=== PATIENT | female | born 2000 | race American Indian/Alaskan Native ===

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

== ENCOUNTER 2018-02-19 02:25 | Inpatient (IN) | payer MEDICAID ==
[2018-02-19] MEDS ORDERED: COLACE PO PRN (07:09)
[2018-02-19] MEDS ORDERED: STADOL IV PRN (07:09)
[2018-02-19] MEDS ORDERED: ZOFRAN IV PRN ×2 (07:09→18:16)
[2018-02-19] MEDS ORDERED: TYLENOL PO PRN ×2 (07:09→18:16)
[2018-02-19 08:12] LABS: Basophils # (Auto) 0.1 K/mm3 (0.0-0.1); Basophils % (Auto) 0.9 % (0.0-1.8); Eosinophils # (Auto) 0.1 K/mm3 (0.0-0.4); Eosinophils % (Auto) 1.5 % (0.0-4.3); Hematocrit 35.5 % (30.3-42.9); Hemoglobin 11.7 gm/dl (10.1-14.3); Lymphocytes # (Auto) 1.4 K/mm3 (1.2-5.4); Lymphocytes % (Auto) 21.6 % (13.4-35.0); Mean Corpuscular HGB Conc 33 % (30-34); Mean Corpuscular Hemoglobin 29 pg (28-32); Mean Corpuscular Volume 87 fl (79-97); Monocytes # (Auto) 0.4 K/mm3 (0.0-0.8); Red Cell Distribution Width 17.9 % (13.2-15.2)
[2018-02-19 08:20] LABS: Platelet Count 106 K/mm3 (140-440)
[2018-02-19] MEDS: LACTATED RINGERS 1,000 ML IV SCH ×3 (08:31→12:43)
[2018-02-19 09:20] LABS: Alanine Aminotransferase 11 units/L (7-56); Albumin 3.5 g/dL (3.9-5); BUN/Creatinine Ratio 16; Blood Urea Nitrogen 11 mg/dL (7-17); Calcium 8.3 mg/dL (8.4-10.2); Hemolysis Index 46
[2018-02-19] MEDS ORDERED: BRETHINE IVP PRN (12:53)
[2018-02-19] MEDS ORDERED: BRETHINE SUB-Q PRN (12:53)
[2018-02-19] MEDS ORDERED: ePHEDrine SULFATE IV PRN (12:53)
[2018-02-19] MEDS ORDERED: MINERAL OIL PO PRN (12:53)
[2018-02-19] MEDS ORDERED: SUBLIMAZE IV PRN (12:53)
[2018-02-19] MEDS ORDERED: PHENERGAN PO PRN ×2 (12:53→18:16)
[2018-02-19] MEDS ORDERED: NARCAN 0.4 MG/1 ML IV PRN (12:53)
[2018-02-19] MEDS ORDERED: POLYCILLIN/NS 2 GM/100 ML 2 GM/100 ML BAG IV ONE (12:53)
[2018-02-19] MEDS ORDERED: XYLOCAINE 2% INFILTRATI ONE ×2 (12:53→17:50)
[2018-02-19] MEDS ORDERED: PITOCin/NS 30 UNIT/500ML 30 UNITS/500 ML BAG IV SCH ×2 (13:00)
[2018-02-19] MEDS ORDERED: LACTATED RINGERS 1,000 ML IV SCH (13:00)
[2018-02-19] MEDS ORDERED: PITOCin/NS 20 UNIT/1000ML DRIP 20 UNITS/1,000 ML BAG IV SCH ×2 (13:00→19:00)
--- NOTE | 2018-02-19 13:09 | History and Physical Report ---
History of Present Illness Date of examination: 02/19/18 Date of admission: 02/19/18 07:32 Chief complaint: contractions History of present illness: Pt is a 17yo BF EDC 03/03/18; EGA 38 2/7 weeks presents to L&D complaining of RUC's q 3-5 mins without much cervical change, but had a non-reassuring tracing requiring admission. She received late care at [facility] since 28 weeks and was hospitalized for labor at 26 weeks and started on Procardia. records are available and GBS is Positive. Past History Past Medical History: no pertinent history Past Surgical History: no surgical history Family/Genetic History: none Social history: no significant social history, single - Obstetrical History Expected Date of Delivery: 03/03/18 Actual Gestation: 38 Week(s) 2 Day(s) : 1 Medications and Allergies Allergies Allergy/AdvReac Type Severity Reaction Status Date / Time No Known Allergies Allergy Verified 11/24/17 12:17 Home Medications Medication Instructions Recorded Confirmed Last Taken Type Ampicillin [Polycillin] 500 mg PO BID #10 capsule 11/27/17 02/19/18 2 Months Ago Rx ~12/20/17 NIFEdipine [Procardia] 10 mg PO Q8HR #90 capsule 11/27/17 02/19/18 1 Month Ago Rx ~01/20/18 Vit-Fe Fumar-FA [ 1 each PO QDAY #30 tablet 11/27/17 02/19/18 02/18/18 11:30 Rx Vitamin] Ferrous Gluconate [Iron 256 MG tab] 1 tab PO QDAY 02/19/18 02/19/18 02/18/18 11: 30 History Valacyclovir HCl [Valtrex] 1,000 mg PO QDAY 02/19/18 02/19/18 02/18/18 11:30 History Active Meds: Active Medications Acetaminophen (Tylenol) 650 mg PO Q4H PRN PRN Reason: Pain MILD(1-3)/Fever >100.5/ENNIS Butorphanol Tartrate (Stadol) 2 mg IV Q2H PRN PRN Reason: Labor Pain Last Admin: 02/19/18 11:21 Dose: 2 mg Docusate Sodium (Colace) 100 mg PO Q12H PRN PRN Reason: Constipation Ephedrine Sulfate (Ephedrine Sulfate) 10 mg IV Q2M PRN PRN Reason: Hypotension Fentanyl (Sublimaze) 100 mcg IV Q2H PRN PRN Reason: Labor Pain Lactated Ringer's (Lactated Ringers) 1,000 mls @ 125 mls/hr IV DIRECT OTONIEL Last Admin: 02/19/18 12:43 Dose: 125 mls/hr Ampicillin Sodium (Ampicillin/Ns 1 Gm/50 Ml) 1 gm in 50 mls @ 100 mls/hr IV Q4HR OTONIEL; Protocol Ampicillin Sodium (Polycillin/Ns 2 Gm/100 Ml) 2 gm in 100 mls @ 100 mls/hr IV ONCE ONE; Protocol Stop: 02/19/18 13:52 Lactated Ringer's (Lactated Ringers) 1,000 mls @ 125 mls/hr IV DIRECT OTONIEL Oxytocin/Sodium Chloride (Pitocin/Ns 20 Unit/1000ml Drip) 20 units in 1,000 mls @ 125 mls/hr IV DIRECT OTONIEL Oxytocin/Sodium Chloride (Pitocin/Ns 30 Unit/500ml) 30 units in 500 mls @ 1 mls /hr IV TITR OTONIEL; Protocol Oxytocin/Sodium Chloride (Pitocin/Ns 30 Unit/500ml) 30 units in 500 mls @ 4 mls /hr IV TITR OTONIEL; Protocol Lidocaine (Xylocaine 2%) 20 ml INFILTRATI ONCE ONE Stop: 02/19/18 12:54 Mineral Oil (Mineral Oil) 30 ml PO QHS PRN PRN Reason: Constipation Multivitamins/Iron/Calcium ( Vitamin) 1 each PO QDAY OTONIEL Naloxone HCl (Narcan 0.4 Mg/1 Ml) 0.1 mg IV Q2MIN PRN PRN Reason: Res Rate </= 8 or 02 SAT < 92% Ondansetron HCl (Zofran) 4 mg IV Q6H PRN PRN Reason: Nausea And Vomiting Last Admin: 02/19/18 08:31 Dose: 4 mg Promethazine HCl (Phenergan) 25 mg PO Q6H PRN PRN Reason: Nausea And Vomiting Terbutaline Sulfate (Brethine) 0.25 mg SUB-Q ONCE PRN PRN Reason: Hyperstimulation/Hypertonicity Terbutaline Sulfate (Brethine) 0.25 mg IVP ONCE PRN PRN Reason: Hyperstimulation/Hypertonicity Review of Systems All systems: negative - Vital Signs Vital signs: Vital Signs Pulse BP 63 135/92 02/19/18 03:27 02/19/18 03:27 Temp Pulse Resp BP Pulse Ox 97.5 F L 56 L 18 161/93 100 02/19/18 08:14 02/19/18 13:01 02/19/18 08:14 02/19/18 12:58 02/19/18 13:01 - Physical Exam Breasts: Positive: deferred Cardiovascular: Regular rate Lungs: Positive: Clear to auscultation Abdomen: Positive: normal appearance Genitourinary (Female): Positive: normal external genitalia Vagina: Positive: normal moisture Uterus: Positive: enlarged Extremities: Positive: normal - Obstetrical FHR: category 1 Uterine Contraction Monitor Mode: External Cervical Dilatation: 1 (per nurse) Cervical Effacement Percentage: 50 (per nurse) Uterine Contraction Pattern: Irregular Uterine Tone Measurement Phase: Contraction Uterine Contraction Intensity: Mild Results Result Diagrams: 02/19/18 07:55 02/19/18 09:01 Abnormal lab results 02/19/18 02/19/18 Range/Units 07:55 09:01 RDW 17.9 H (13.2-15.2) % Plt Count 106 L (140-440) K/mm3 Carbon Dioxide 20 L (22-30) mmol/L Calcium 8.3 L (8.4-10.2) mg/dL Alkaline Phosphatase 143 H (35-129) units/L Albumin 3.5 L (3.9-5) g/dL All other labs normal. Assessment and Plan - Patient Problems (1) 38 weeks gestation of Onset Date: 02/19/18 Current Visit: Yes Status: Acute Plan to address problem: A: IUP @ 38 3/7 weeks labor GBS Positive Non-reassuring surveillance P: Admit to L&D for pitocin augmentation of labor IV Ampicillin (2) labor in third trimester with term delivery Onset Date: 02/19/18 Current Visit: Yes Status: Acute Qualifiers: Fetus number: single or unspecified fetus Qualified Code(s): O60.23X0 - Term delivery with labor, third trimester, not applicable or unspecified (3) Non-reassuring heart rate or rhythm affecting management of mother Onset Date: 02/19/18 Current Visit: Yes Status: Acute
[2018-02-19 14:28] LABS: Hemoglobin 11.4 gm/dl (10.1-14.3)
[2018-02-19 14:34] LABS: Hematocrit 33.6 % (30.3-42.9); Mean Corpuscular HGB Conc 34 % (30-34); Mean Corpuscular Hemoglobin 29 pg (28-32); Mean Corpuscular Volume 86 fl (79-97); Red Blood Count 3.91 M/mm3 (3.65-5.03); Red Cell Distribution Width 18.1 % (13.2-15.2)
[2018-02-19 14:35] LABS: Platelet Count 104 K/mm3 (140-440)
[2018-02-19] MEDS ORDERED: AMPICILLIN/NS 1 GM/50 ML 1 GM/50 ML BAG IV SCH (16:58)
--- NOTE | 2018-02-19 18:09 | Procedure Note ---
OB Delivery Note - Delivery Date of Delivery: 02/19/18 Surgeon: SONJA GREEN Estimated blood loss: 200cc - Vaginal Delivery presentation: vertex Delivery position: OA Intrapartum events: PROM->1hr before delivery, meconium, mult.variable deceleratio Delivery induction: none Delivery augmentation: pitocin Delivery monitor: external FHT, external uterine Route of delivery: Delivery placenta: spontaneous Delivery cord: nuchal cord (x1), 3 umbilical vessels Episiotomy: none Delivery laceration: 1st degree, vaginal side wall Delivery repair: vicryl Anesthesia: local Delivery comments: Infant delivered OA and placed on Mom's chest for [id number] bonding and delayed cord clamping, cut by Dad - Infant A at 1 minute: 9 at 5 minutes: 9 Gender: Female ([id number])
[2018-02-19] MEDS ORDERED: LANSINOH TP PRN (18:16)
[2018-02-19] MEDS ORDERED: DULCOLAX PR PRN (18:16)
[2018-02-19] MEDS ORDERED: BENADRYL PO PRN (18:16)
[2018-02-19] MEDS ORDERED: MILK OF MAGNESIA PO PRN (18:16)
[2018-02-19] MEDS ORDERED: TUCKS PAD TP PRN (18:16)
[2018-02-19] MEDS ORDERED: PHENERGAN PR PRN (18:16)
[2018-02-19] MEDS ORDERED: NORCO 5/325 PO PRN (18:23)
[2018-02-19] MEDS: MOTRIN PO SCH (18:53)
[2018-02-19] MEDS ORDERED: SODIUM CHLORIDE FLUSH SYRINGE 10 ML IV NR (19:00)
[2018-02-20] MEDS: MOTRIN PO SCH ×4 (01:08→22:25)
[2018-02-20 05:46] LABS: Hematocrit 32.3 % (30.3-42.9); Hemoglobin 10.8 gm/dl (10.1-14.3)
[2018-02-20] MEDS ORDERED: M-M-R II VACCINE SUB-Q ONE (06:00)
[2018-02-20] MEDS ORDERED: BOOSTRIX IM ONE (06:00)
[2018-02-20] MEDS: PRENATAL VITAMIN PO SCH ×2 (10:27→10:28)
--- NOTE | 2018-02-20 10:48 | Progress Note ---
Assessment and Plan - Patient Problems (1) 38 weeks gestation of Onset Date: 02/19/18 Current Visit: Yes Status: Resolved (2) labor in third trimester with term delivery Onset Date: 02/19/18 Current Visit: Yes Status: Resolved Qualifiers: Fetus number: single or unspecified fetus Qualified Code(s): O60.23X0 - Term delivery with labor, third trimester, not applicable or unspecified (3) Non-reassuring heart rate or rhythm affecting management of mother Onset Date: 02/19/18 Current Visit: Yes Status: Resolved (4) (normal spontaneous vaginal delivery) Onset Date: 02/20/18 Current Visit: Yes Status: Resolved Plan to address problem: A: S/P - PPD #1 Doing well Asymptomatic anemia - stable P: May go home today. Subjective - Subjective Date of service: 02/20/18 Principal diagnosis: s/p - PPD #1 Interval history: Pt is feeling well without complaints. Bleeding improved. Wants to go home today. Patient reports: appetite normal, voiding normally, pain well controlled, flatus , ambulating normally, no dizzy ambulation, no nauseated [place]: doing well, nursing well Objective - Vital Signs Latest vital signs: Vital Signs Temp Pulse Resp BP BP Pulse Ox 02/20/18 08:13 98.8 F 82 18 127/91 100 02/20/18 05:56 98.6 F 69 16 126/80 02/20/18 01:04 98.8 F 93 H 18 115/65 02/19/18 21:15 98.4 F 64 18 118/76 02/19/18 19:09 97.9 F 02/19/18 19:03 64 130/80 02/19/18 18:58 76 120/76 02/19/18 18:28 80 141/82 02/19/18 17:58 73 142/75 02/19/18 17:29 70 137/89 02/19/18 16:58 74 152/87 02/19/18 16:28 60 150/86 02/19/18 15:58 59 L 144/83 02/19/18 15:29 62 136/83 02/19/18 14:58 56 L 152/95 02/19/18 14:28 56 L 135/86 02/19/18 13:01 56 L 100 02/19/18 12:58 60 161/93 02/19/18 12:56 62 100 02/19/18 12:51 55 L 100 02/19/18 12:30 61 119/65 02/19/18 11:58 62 130/82 02/19/18 11:28 55 L 136/69 02/19/18 10:58 54 L 145/89 Intake and Output 02/19/18 02/20/18 02/20/18 22:59 06:59 14:59 Intake Total 480 250 Output Total 951 Balance -471 250 Intake: Oral 250 Intake, Free Water 480 Output: Urine 951 Void 951 Other: Total, Intake Amount 250 Total, Output Amount 400 # Voids Void 1 Estimated Blood Loss 200 - Exam Breasts: Present: deferred Cardiovascular: Present: Regular rate Lungs: Present: Clear to auscultation Abdomen: Present: normal appearance, soft Uterus: Present: normal, firm, fundal height below umbilicus Extremities: Present: normal - Labs Labs: Abnormal lab results 02/19/18 Range/Units 14:03 RDW 18.1 H (13.2-15.2) % Plt Count 104 L (140-440) K/mm3 Laboratory Tests 02/19/18 02/19/18 02/19/18 07:47 07:55 09:01 WBC 6.6 RBC 4.10 Hgb 11.7 Hct 35.5 MCV 87 MCH 29 MCHC 33 RDW 17.9 H Plt Count 106 L Lymph % (Auto) 21.6 [place] % (Auto) 6.0 Eos % (Auto) 1.5 Baso % (Auto) 0.9 Lymph # 1.4 [place] # 0.4 Eos # 0.1 Baso # 0.1 Seg Neutrophils % 70.0 Seg Neutrophils # 4.6 Sodium 139 Potassium 4.4 Chloride 104.8 Carbon Dioxide 20 L Anion Gap 19 BUN 11 Creatinine 0.7 Estimated GFR > 60 BUN/Creatinine Ratio 16 Glucose 85 Calcium 8.3 L Total Bilirubin 0.20 AST 23 ALT 11 Alkaline Phosphatase 143 H Total Protein 6.9 Albumin 3.5 L Albumin/Globulin Ratio 1.0 Blood Type O POSITIVE Antibody Screen Negative 02/19/18 02/20/18 14:03 05:28 WBC 6.4 RBC 3.91 Hgb 11.4 10.8 Hct 33.6 32.3 MCV 86 MCH 29 MCHC 34 RDW 18.1 H Plt Count 104 L Lymph % (Auto) [place] % (Auto) Eos % (Auto) Baso % (Auto) Lymph # [place] # Eos # Baso # Seg Neutrophils % Seg Neutrophils # Sodium Potassium Chloride Carbon Dioxide Anion Gap BUN Creatinine Estimated GFR BUN/Creatinine Ratio Glucose Calcium Total Bilirubin AST ALT Alkaline Phosphatase Total Protein Albumin Albumin/Globulin Ratio Blood Type Antibody Screen
--- NOTE | 2018-02-20 12:23 | Discharge Summary ---
Providers - Providers Date of Admission: 02/19/18 07:32 Date of discharge: 02/20/18 Attending physician: SONJA GREEN Primary care physician: SONJA GREEN Hospitalization Reason for admission: observation, induction of labor, IUP at term, other (non- reassuring tracing) Delivery: Episiotomy: none Laceration: vaginal side wall, 1st degree Other procedures: none complications: none Discharge diagnosis: IUP at term delivered [place] baby: female Hospital course: Unremarkable. Condition at discharge: Good Disposition: DC-01 TO HOME OR SELFCARE - Discharge Diagnoses (1) 38 weeks gestation of Status: Resolved (2) labor in third trimester with term delivery Status: Resolved Qualifiers: Fetus number: single or unspecified fetus Qualified Code(s): O60.23X0 - Term delivery with labor, third trimester, not applicable or unspecified (3) Non-reassuring heart rate or rhythm affecting management of mother Status: Resolved (4) (normal spontaneous vaginal delivery) Status: Resolved Plan - Discharge Medications Prescriptions: Ferrous Gluconate [Iron 256 MG tab] 1 tab PO QDAY #30 tablet Ibuprofen [Motrin 600 MG tab] 600 mg PO Q6H #30 tablet Vit-Fe Fumar-FA [ Vitamin] 1 each PO QDAY #30 tablet - Provider Discharge Summary Activity: routine, no sex for 6 weeks, no heavy lifting 4 weeks, no strenuous exercise Diet: routine Instructions: routine Additional instructions: [] Smoking cessation referral if applicable(refer to patient education folder for contact #) [] Refer to [facility] Booklet Call your doctor immediately for: * Fever > 100.5 * Heavy vaginal bleeding ( >1 pad per hour) * Severe persistent headache * Shortness of breath * Reddened, hot, painful area to leg or breast * Drainage or odor from incision. * Keep incision clean and dry at all times and follow doctor's instructions regarding bathing/showering - Follow up plan Follow up: SONJA GREEN MD [Primary Care Provider] - 6 Weeks
[2018-02-21] MEDS: MOTRIN PO SCH ×2 (05:55→12:38)
[2018-02-21] MEDS ORDERED: BOOSTRIX IM ONE (06:00)
[2018-02-21] MEDS: PRENATAL VITAMIN PO SCH (09:32)
[2018-02-21] MEDS ORDERED: NORMODYNE PO SCH (16:00)
[2018-02-21 16:18] VITALS: BP 121/79
== END 2018-02-21 17:40 | disposition home or self-care (01) | DRG 775 ==
LOC: TRG 02:25 → LD 07:32 → OB 20:37
PROVIDERS: ADMIT Obstetrics & Gynecology; ATTEND Obstetrics & Gynecology
PROC: 10E0XZZ Delivery of Products of Conception, External Approach (ICD-10-PCS; principal; 2018-02-19)
PROC: 0HQ9XZZ Repair Perineum Skin, External Approach (ICD-10-PCS; 2018-02-19)
PROC: 3E0234Z Introduction of Serum, Toxoid and Vaccine into Muscle, Percutaneous Approach (ICD-10-PCS; 2018-02-21)
DX: O76 Abnormality in fetal heart rate and rhythm complicating labor and delivery (principal); O77.0 Labor and delivery complicated by meconium in amniotic fluid; O99.824 Streptococcus B carrier state complicating childbirth; O69.81X0 Labor and delivery complicated by cord around neck, without compression, not applicable or unspecified; O42.02 Full-term premature rupture of membranes, onset of labor within 24 hours of rupture; O70.0 First degree perineal laceration during delivery; D64.9 Anemia, unspecified; O90.81 Anemia of the puerperium; Z3A.38 38 weeks gestation of pregnancy; Z37.0 Single live birth; Z23 Encounter for immunization
CPT/HCPCS: 36415; 80053; 85014; 85018; 85025; 85027; 86592; 86765; 86850; 86900; 86901; 90715; 99211; G0463; J0290; J0595; J2405; J2590; J7120

== ENCOUNTER 2019-07-01 22:17 | Inpatient (IN) | payer MEDICAID ==
[2019-07-02 01:05] LABS: Bacteria,Urine 1+ /HPF (Negative); Bilirubin,Urine NEG (Negative); Blood,Urine NEG (Negative); Color,Urine Yellow (Yellow); Mucus,Urine 3+ /HPF; Urobilinogen,Urine < 2.0 mg/dL (<2.0)
[2019-07-02] MEDS ORDERED: LACTATED RINGERS 1,000 ML IV ONE (01:34)
[2019-07-02] MEDS: BUTORPHANOL 2 MG/1 ML INJ IV PRN ×3 (01:57→18:30)
[2019-07-02] MEDS ORDERED: LIDOCAINE (2%) 20 MG/1 ML VIAL 20 ML MDV INFILTRATI ONE ×2 (06:16→10:06)
[2019-07-02] MEDS ORDERED: MINERAL OIL 30 ML ORAL LIQD PO PRN ×2 (06:16→22:00)
[2019-07-02] MEDS ORDERED: ePHEDrine SULFATE 50 MG/1 ML INJ IV PRN ×2 (06:16→10:06)
[2019-07-02] MEDS ORDERED: TERBUTALINE 1 MG/1 ML INJ SUB-Q PRN ×2 (06:16→10:06)
[2019-07-02] MEDS ORDERED: TERBUTALINE 1 MG/1 ML INJ IVP PRN ×2 (06:16→10:06)
[2019-07-02 06:47] LABS: Hematocrit 32.6 % (30.3-42.9); Hemoglobin 10.8 gm/dl (10.1-14.3); Mean Corpuscular HGB Conc 33 % (30-34); Mean Corpuscular Volume 90 fl (79-97); Platelet Count 114 K/mm3 (140-440); Red Blood Count 3.61 M/mm3 (3.65-5.03); Red Cell Distribution Width 14.9 % (13.2-15.2)
[2019-07-02] MEDS ORDERED: LACTATED RINGERS 1,000 ML IV SCH ×2 (07:00→11:00)
[2019-07-02] MEDS ORDERED: OXYTOCIN 20 UNIT/1000ML DRIP 20 UNITS/1,000 ML BAG IV SCH ×2 (07:00→11:00)
[2019-07-02] MEDS ORDERED: ONDANSETRON 4 MG/2 ML INJ IV PRN (10:06)
[2019-07-02] MEDS ORDERED: fentaNYL 100 MCG/2 ML INJ IV PRN (10:06)
[2019-07-02] MEDS ORDERED: AMPICILLIN/NS 2 GM/100 ML 2 GM/100 ML BAG IV ONE (10:06)
--- NOTE | 2019-07-02 10:06 | History and Physical Report ---
History of Present Illness Date of examination: 07/02/19 Date of admission: 07/02/19 06:16 Chief complaint: Labor History of present illness: Pt is a 18yo BF EDC 07/07/19; EGA 39 2/7 weeks presents to L&D complaining of RUC's q 3-5 mins. She received late care at [facility] since 37 weeks after transfer from another provider, but records are not available a,d GBS is Positive. Past History Past Medical History: no pertinent history Past Surgical History: no surgical history Family/Genetic History: none Social history: no significant social history, single - Obstetrical History Expected Date of Delivery: 07/07/19 Actual Gestation: 39 Week(s) 2 Day(s) : 3 Medications and Allergies Allergies Allergy/AdvReac Type Severity Reaction Status Date / Time No Known Allergies Allergy Verified 11/24/17 12:17 Home Medications Medication Instructions Recorded Confirmed Last Taken Type Ampicillin 500 mg PO BID #10 capsule 11/27/17 02/19/18 2 Months Ago Rx ~12/20/17 NIFEdipine [Procardia] 10 mg PO Q8HR #90 capsule 11/27/17 02/19/18 1 Month Ago Rx ~01/20/18 Vit-Fe Fumar-FA [ 1 each PO QDAY #30 tablet 11/27/17 02/19/18 02/18/18 11:30 Rx Vitamin] Valacyclovir HCl [Valtrex] 1,000 mg PO QDAY 02/19/18 02/19/18 02/18/18 11:30 History Ferrous Gluconate [Iron 256 MG tab] 1 tab PO QDAY #30 tablet 02/20/18 Unknown Rx Ibuprofen [Motrin 600 MG tab] 600 mg PO Q6H #30 tablet 02/20/18 Unknown Rx Vit-Fe Fumar-FA [ 1 each PO QDAY #30 tablet 02/20/18 Unknown Rx Vitamin] Active Meds: Active Medications Butorphanol Tartrate (Stadol) 1 mg IV Q2H PRN PRN Reason: Pain, Moderate (4-6) Last Admin: 07/02/19 09:29 Dose: 1 mg Documented by: Ephedrine Sulfate (Ephedrine Sulfate) 10 mg IV Q2M PRN PRN Reason: Hypotension Oxytocin/Sodium Chloride (Pitocin/Ns 20 Unit/1000ml Drip) 20 units in 1,000 mls @ 125 mls/hr IV DIRECT OTONIEL Lactated Ringer's (Lactated Ringers) 1,000 mls @ 125 mls/hr IV DIRECT OTONIEL Last Admin: 07/02/19 09:29 Dose: 125 mls/hr Documented by: Oxytocin/Sodium Chloride (Pitocin/Ns 30 Unit/500ml) 30 units in 500 mls @ 4 mls/hr IV TITR OTONIEL; Protocol Mineral Oil (Mineral Oil) 30 ml PO QHS PRN PRN Reason: Constipation Terbutaline Sulfate (Brethine) 0.25 mg SUB-Q ONCE PRN PRN Reason: Hyperstimulation/Hypertonicity Terbutaline Sulfate (Brethine) 0.25 mg IVP ONCE PRN PRN Reason: Hyperstimulation/Hypertonicity Review of Systems All systems: negative - Vital Signs Vital signs: Vital Signs Pulse BP 62 126/77 07/01/19 23:39 07/01/19 23:39 Temp Pulse Resp BP Pulse Ox 98.7 F 63 13 130/65 07/02/19 07:41 07/02/19 07:41 07/02/19 07:41 07/02/19 07:41 - Physical Exam Breasts: Positive: deferred Cardiovascular: Regular rate Lungs: Positive: Clear to auscultation Abdomen: Positive: normal appearance Genitourinary (Female): Positive: normal external genitalia Uterus: Positive: enlarged Extremities: Positive: normal - Obstetrical FHR: category 1 Cervical Dilatation: 2 (per nurse) Cervical Effacement Percentage: 60 (per nurse) station: -2 Uterine Contraction Pattern: Irregular Uterine Tone Measurement Phase: Contraction Uterine Contraction Intensity: Moderate Results Result Diagrams: 07/02/19 02:00 Abnormal lab results 07/02/19 Range/Units 02:00 RBC 3.61 L (3.65-5.03) M/mm3 Plt Count 114 L (140-440) K/mm3 All other labs normal. Assessment and Plan - Patient Problems (1) 39 weeks gestation of Onset Date: 07/02/19 Current Visit: Yes Status: Acute Plan to address problem: A: IUP @ 39 2/7 weeks in early labor Late care +GBS P: Admit to L&D for expectant vaginal delivery IV Ampicillin
[2019-07-02] MEDS: OXYTOCIN DRIP 30 UNITS/500 ML BAG IV SCH ×2 (10:15→11:10)
[2019-07-02] MEDS ORDERED: OXYTOCIN DRIP 30 UNITS/500 ML BAG IV SCH (11:00)
[2019-07-02] MEDS: AMPICILLIN/NS 1 GM/50 ML 1 GM/50 ML BAG IV SCH ×3 (16:05→23:55)
--- NOTE | 2019-07-02 18:28 | Progress Note ---
Assessment and Plan A: IUP@ 39.2 wks CAT I FHT + GBS P: Admin Stadol Continue monitoring Anticipate Subjective - Subjective Date of service: 07/02/19 Patient reports: other ("I'm in pain") Objective - Vital Signs Vital Signs: Vital Signs - 12hr 07/02/19 07/02/19 07/02/19 07:41 11:24 11:25 Temperature 98.7 F 98.9 F Pulse Rate 63 63 68 Respiratory 13 Rate Blood Pressure 124/78 Blood Pressure 130/65 124/78 [Left] 07/02/19 14:32 Temperature Pulse Rate 77 Respiratory Rate Blood Pressure 125/68 Blood Pressure [Left] - Exam FHR: category 1 Uterine Contraction Monitor Mode: External Cervical Dilatation: 2 Cervical Effacement Percentage: 50 station: -3 Uterine Contraction Pattern: Irregular Uterine Contraction Intensity: Moderate - Labs Labs: Abnormal Labs 07/02/19 02:00 RBC 3.61 L Plt Count 114 L Laboratory Results - last 24 hr 07/01/19 07/02/19 07/02/19 23:00 02:00 08:40 WBC 5.6 RBC 3.61 L Hgb 10.8 Hct 32.6 MCV 90 MCH 30 MCHC 33 RDW 14.9 Plt Count 114 L Urine Color Yellow Urine Turbidity Slightly-cloudy Urine pH 6.0 Ur Specific [place] 1.027 Urine Protein 30 mg/dl Urine Glucose (UA) Neg Urine Ketones 20 Urine Blood Neg Urine Nitrite Neg Urine Bilirubin Neg Urine Urobilinogen < 2.0 Ur Leukocyte Esterase Lg Urine WBC (Auto) 4.0 Urine RBC (Auto) 3.0 U Epithel Cells (Auto) 9.0 Urine Bacteria (Auto) 1+ Urine Mucus 3+ Blood Type O POSITIVE Antibody Screen Negative
--- NOTE | 2019-07-02 22:17 | Progress Note ---
Assessment and Plan A: CAT I FHT Pos GBS p: Epidural prn Continue monitoring Anticipate Subjective - Subjective Date of service: 07/02/19 Patient reports: other ("I'm in pain") Objective - Vital Signs Vital Signs: Vital Signs - 12hr 07/02/19 07/02/19 07/02/19 11:24 11:25 14:32 Temperature 98.9 F Pulse Rate 63 68 77 Respiratory Rate Blood Pressure 124/78 125/68 Blood Pressure 124/78 [Left] Blood Pressure [Right] 07/02/19 07/02/19 07/02/19 18:30 19:55 19:58 Temperature 98.3 F Pulse Rate 72 72 Respiratory 20 18 Rate Blood Pressure 115/73 Blood Pressure [Left] Blood Pressure 115/73 [Right] - Exam FHR: category 1 Uterine Contraction Monitor Mode: External Cervical Dilatation: 3 Cervical Effacement Percentage: 60 station: -3 Uterine Contraction Frequency (min): 2-3 Uterine Contraction Pattern: Regular Uterine Tone Measurement Phase: Resting Uterine Contraction Intensity: Moderate - Labs Labs: Abnormal Labs 07/02/19 02:00 RBC 3.61 L Plt Count 114 L Laboratory Results - last 24 hr 07/01/19 07/02/19 07/02/19 23:00 02:00 08:40 WBC 5.6 RBC 3.61 L Hgb 10.8 Hct 32.6 MCV 90 MCH 30 MCHC 33 RDW 14.9 Plt Count 114 L Urine Color Yellow Urine Turbidity Slightly-cloudy Urine pH 6.0 Ur Specific [place] 1.027 Urine Protein 30 mg/dl Urine Glucose (UA) Neg Urine Ketones 20 Urine Blood Neg Urine Nitrite Neg Urine Bilirubin Neg Urine Urobilinogen < 2.0 Ur Leukocyte Esterase Lg Urine WBC (Auto) 4.0 Urine RBC (Auto) 3.0 U Epithel Cells (Auto) 9.0 Urine Bacteria (Auto) 1+ Urine Mucus 3+ Blood Type O POSITIVE Antibody Screen Negative
[2019-07-02] MEDS ORDERED: SODIUM CHLORIDE P/F VIAL 10 ML 10 ML ONE (22:59)
[2019-07-02] MEDS ORDERED: DEXMEDETOMIDINE 200 MCG/2 ML VIAL IV ONE (22:59)
[2019-07-02] MEDS ORDERED: NALOXONE 2 MG/2 ML INJ IV PRN (23:17)
--- NOTE | 2019-07-02 23:18 | Anesthesia Consultation ---
Anesthesia Consult and Med Hx Date of service: 07/02/19 - Airway Anesthetic Teeth Evaluation: Good ROM Head & Neck: Adequate Mental/Hyoid Distance: Adequate Mallampati Class: Class II Intubation Access Assessment: Probably Good - Pulmonary Exam CTA: Yes - Cardiac Exam Cardiac Exam: RRR - Pre-Operative Health Status ASA Pre-Surgery Classification: ASA2 Proposed Anesthetic Plan: Epidural - Pulmonary Hx Asthma: No COPD: No Hx Pneumonia: No - Cardiovascular System Hx Hypertension: No - Central Nervous System Hx Seizures: No Hx Psychiatric Problems: No - Endocrine Hx Renal Disease: No Hx End Stage Renal Disease: No Hx Hypothyroidism: No Hx Hyperthyroidism: No - Hematic Hx Anemia: Yes Hx Sickle Cell Disease: No - Other Systems Hx Alcohol Use: No
[2019-07-02] MEDS ORDERED: fentaNYL-BUPIV 2 MCG/ML-0.125% 200 MCG/100 ML BAG EPIDURAL SCH (23:45)
[2019-07-02] MEDS: ePHEDrine SULFATE 50 MG/1 ML INJ IV PRN (23:45)
[2019-07-03] MEDS: ePHEDrine SULFATE 50 MG/1 ML INJ IV PRN
--- NOTE | 2019-07-03 02:48 | Progress Note ---
Assessment and Plan A: IUP @ 39.3 wks P: AROM cl fluid Continue monitoring Anticipate Subjective - Subjective Date of service: 07/03/19 Principal diagnosis: IUP @ 39.3 wks Patient reports: other ("I'm in pain") Objective - Vital Signs Vital Signs: Vital Signs - 12hr 07/02/19 07/02/19 07/02/19 18:30 19:55 19:58 Temperature 98.3 F Pulse Rate 72 72 Respiratory 20 18 Rate Blood Pressure 115/73 Blood Pressure 115/73 [Right] O2 Sat by Pulse Oximetry 07/02/19 07/02/19 07/02/19 23:04 23:08 23:09 Temperature Pulse Rate 87 71 77 Respiratory Rate Blood Pressure 131/77 Blood Pressure [Right] O2 Sat by Pulse 100 100 Oximetry 07/02/19 07/02/19 07/02/19 23:10 23:12 23:14 Temperature Pulse Rate 78 82 73 Respiratory Rate Blood Pressure 120/75 120/73 121/84 Blood Pressure [Right] O2 Sat by Pulse 81 L 100 Oximetry 07/02/19 07/02/19 07/02/19 23:16 23:18 23:19 Temperature Pulse Rate 81 91 H 76 Respiratory Rate Blood Pressure 116/76 121/69 Blood Pressure [Right] O2 Sat by Pulse 100 Oximetry 07/02/19 07/02/19 07/02/19 23:20 23:22 23:24 Temperature Pulse Rate 73 71 65 Respiratory Rate Blood Pressure 114/61 115/60 111/58 Blood Pressure [Right] O2 Sat by Pulse 100 Oximetry 07/02/19 07/02/19 07/02/19 23:26 23:29 23:30 Temperature Pulse Rate 69 127 H 151 H Respiratory Rate Blood Pressure 109/58 130/80 Blood Pressure [Right] O2 Sat by Pulse 100 Oximetry 07/02/19 07/02/19 07/02/19 23:32 23:34 23:36 Temperature Pulse Rate 112 H 109 H 86 Respiratory Rate Blood Pressure 110/57 102/56 107/59 Blood Pressure [Right] O2 Sat by Pulse 99 Oximetry 07/02/19 07/02/19 07/02/19 23:38 23:39 23:40 Temperature Pulse Rate 83 101 H 89 Respiratory Rate Blood Pressure 87/54 83/60 Blood Pressure [Right] O2 Sat by Pulse 98 Oximetry 07/02/19 07/02/19 07/02/19 23:42 23:44 23:46 Temperature Pulse Rate 112 H 85 80 Respiratory Rate Blood Pressure 124/80 115/75 127/67 Blood Pressure [Right] O2 Sat by Pulse 94 Oximetry 07/02/19 07/02/19 07/02/19 23:48 23:49 23:50 Temperature Pulse Rate 93 H 94 H 83 Respiratory Rate Blood Pressure 117/68 113/66 Blood Pressure [Right] O2 Sat by Pulse 100 Oximetry 07/02/19 07/02/19 07/02/19 23:52 23:54 23:56 Temperature Pulse Rate 80 85 78 Respiratory Rate Blood Pressure 113/61 103/59 104/59 Blood Pressure [Right] O2 Sat by Pulse 98 Oximetry 07/02/19 07/02/19 07/03/19 23:58 23:59 00:00 Temperature Pulse Rate 109 H 77 86 Respiratory Rate Blood Pressure 94/68 94/55 Blood Pressure [Right] O2 Sat by Pulse 100 Oximetry 07/03/19 07/03/19 07/03/19 00:02 00:04 00:06 Temperature Pulse Rate 93 H 71 84 Respiratory Rate Blood Pressure 91/53 122/72 100/59 Blood Pressure [Right] O2 Sat by Pulse 100 Oximetry 07/03/19 07/03/19 07/03/19 00:08 00:09 00:10 Temperature Pulse Rate 90 86 66 Respiratory Rate Blood Pressure 92/55 115/70 Blood Pressure [Right] O2 Sat by Pulse 100 Oximetry 07/03/19 07/03/19 07/03/19 00:12 00:14 00:16 Temperature Pulse Rate 78 71 96 H Respiratory Rate Blood Pressure 106/62 115/67 108/64 Blood Pressure [Right] O2 Sat by Pulse 100 Oximetry 07/03/19 07/03/19 07/03/19 00:18 00:19 00:20 Temperature Pulse Rate 89 65 75 Respiratory Rate Blood Pressure 96/62 108/64 Blood Pressure [Right] O2 Sat by Pulse 100 Oximetry 07/03/19 07/03/19 07/03/19 00:22 00:24 00:26 Temperature Pulse Rate 78 85 80 Respiratory Rate Blood Pressure 113/69 112/66 114/73 Blood Pressure [Right] O2 Sat by Pulse 100 Oximetry 07/03/19 07/03/19 07/03/19 00:28 00:29 00:31 Temperature Pulse Rate 94 H 84 73 Respiratory Rate Blood Pressure 112/67 Blood Pressure [Right] O2 Sat by Pulse 100 71 L Oximetry 07/03/19 07/03/19 07/03/19 00:32 00:34 00:36 Temperature Pulse Rate 75 86 67 Respiratory Rate Blood Pressure 113/61 102/58 110/66 Blood Pressure [Right] O2 Sat by Pulse 100 Oximetry 07/03/19 07/03/19 07/03/19 00:38 00:39 00:40 Temperature Pulse Rate 83 72 65 Respiratory Rate Blood Pressure 92/55 110/66 Blood Pressure [Right] O2 Sat by Pulse 100 Oximetry 07/03/19 07/03/19 07/03/19 00:42 00:44 00:46 Temperature Pulse Rate 79 74 108 H Respiratory Rate Blood Pressure 90/50 112/71 112/56 Blood Pressure [Right] O2 Sat by Pulse 100 Oximetry 07/03/19 07/03/19 07/03/19 00:48 00:49 00:55 Temperature Pulse Rate 67 79 97 H Respiratory Rate Blood Pressure 110/58 99/60 Blood Pressure [Right] O2 Sat by Pulse 100 100 Oximetry 07/03/19 07/03/19 07/03/19 00:59 01:00 01:05 Temperature Pulse Rate 110 H 68 64 Respiratory Rate Blood Pressure 96/59 116/69 Blood Pressure [Right] O2 Sat by Pulse 100 100 Oximetry 07/03/19 07/03/19 07/03/19 01:06 01:09 01:10 Temperature Pulse Rate 61 81 100 H Respiratory Rate Blood Pressure 115/67 112/67 Blood Pressure [Right] O2 Sat by Pulse 100 Oximetry 07/03/19 07/03/19 07/03/19 01:14 01:15 01:21 Temperature Pulse Rate 74 113 H 67 Respiratory Rate Blood Pressure 111/59 Blood Pressure [Right] O2 Sat by Pulse 99 100 Oximetry 07/03/19 07/03/19 07/03/19 01:25 01:26 01:30 Temperature Pulse Rate 69 86 68 Respiratory Rate Blood Pressure 100/50 100/52 Blood Pressure [Right] O2 Sat by Pulse 99 Oximetry 07/03/19 07/03/19 07/03/19 01:31 01:34 01:36 Temperature Pulse Rate 89 74 90 Respiratory Rate Blood Pressure 97/50 Blood Pressure [Right] O2 Sat by Pulse 100 97 Oximetry 07/03/19 07/03/19 07/03/19 01:39 01:41 01:44 Temperature Pulse Rate 72 84 75 Respiratory Rate Blood Pressure 101/52 103/59 Blood Pressure [Right] O2 Sat by Pulse 100 Oximetry 07/03/19 07/03/19 07/03/19 01:46 01:49 01:51 Temperature Pulse Rate 68 66 70 Respiratory Rate Blood Pressure 102/58 Blood Pressure [Right] O2 Sat by Pulse 100 100 Oximetry 07/03/19 07/03/19 07/03/19 01:54 01:56 01:59 Temperature Pulse Rate 69 93 H 82 Respiratory Rate Blood Pressure 99/58 102/62 Blood Pressure [Right] O2 Sat by Pulse 99 Oximetry 07/03/19 07/03/19 07/03/19 02:01 02:05 02:06 Temperature Pulse Rate 102 H 93 H 93 H Respiratory Rate Blood Pressure 101/60 Blood Pressure [Right] O2 Sat by Pulse 100 76 L 100 Oximetry 07/03/19 07/03/19 07/03/19 02:11 02:15 02:16 Temperature Pulse Rate 84 78 72 Respiratory Rate Blood Pressure 109/66 113/58 111/59 Blood Pressure [Right] O2 Sat by Pulse 100 100 Oximetry 07/03/19 07/03/19 07/03/19 02:20 02:21 02:24 Temperature Pulse Rate 65 79 70 Respiratory Rate Blood Pressure 104/57 107/58 Blood Pressure [Right] O2 Sat by Pulse 100 Oximetry 07/03/19 07/03/19 07/03/19 02:26 02:29 02:31 Temperature Pulse Rate 69 83 71 Respiratory Rate Blood Pressure 102/59 Blood Pressure [Right] O2 Sat by Pulse 99 100 Oximetry 07/03/19 07/03/19 02:35 02:36 Temperature Pulse Rate 81 100 H Respiratory Rate Blood Pressure 104/58 Blood Pressure [Right] O2 Sat by Pulse 100 Oximetry - Exam FHR: category 1 Uterine Contraction Monitor Mode: External Cervical Dilatation: 4 Cervical Effacement Percentage: 60 station: -2 Uterine Contraction Frequency (min): q2 Uterine Contraction Pattern: Regular Uterine Tone Measurement Phase: Resting Uterine Contraction Intensity: Moderate - Labs Labs: Abnormal Labs 07/02/19 02:00 RBC 3.61 L Plt Count 114 L Laboratory Results - last 24 hr 07/02/19 07/02/19 02:00 08:40 WBC 5.6 RBC 3.61 L Hgb 10.8 Hct 32.6 MCV 90 MCH 30 MCHC 33 RDW 14.9 Plt Count 114 L Blood Type O POSITIVE Antibody Screen Negative
[2019-07-03] MEDS: AMPICILLIN/NS 1 GM/50 ML 1 GM/50 ML BAG IV SCH (06:36)
--- NOTE | 2019-07-03 07:59 | Procedure Note ---
<MONTSE BOYD - Last Filed: 07/03/19 07:55> OB Delivery Note - Delivery Date of Delivery: 07/03/19 Surgeon: MONTSE BOYD Searchlight Operator: SONJA GREEN Estimated blood loss: other (350cc) - Vaginal Delivery position: OA Delivery augmentation: rupture of membranes, pitocin Delivery monitor: external FHT Route of delivery: Delivery placenta: spontaneous Episiotomy: none Delivery laceration: none Anesthesia: epidural - Infant A at 1 minute: 8 at 5 minutes: 9 Infant Gender: Female <SONJA GREEN - Last Filed: 07/03/19 09:32> OB Delivery Note - A Infant Gender: Female (2210gms)
[2019-07-03] MEDS ORDERED: PRENATAL VIT27-FE FUMARATE-FOLIC ACID VIT TAB PO SCH ×2 (10:00)
[2019-07-03] MEDS ORDERED: PROMETHAZINE 25 MG TAB PO PRN (10:30)
[2019-07-03] MEDS ORDERED: diphenhydrAMINE 25 MG CAP PO PRN (10:30)
[2019-07-03] MEDS ORDERED: ACETAMINOPHEN 325 MG TAB PO PRN (10:30)
[2019-07-03] MEDS ORDERED: PROMETHAZINE 25 MG RECT SUPP PR PRN (10:30)
[2019-07-03] MEDS ORDERED: LANOLIN/ZINC/DIMETHICONE (LANSINOH) 7 GM TP PRN (10:30)
[2019-07-03] MEDS ORDERED: WITCH HAZEL/ GLYCERIN PAD TP PRN (10:30)
[2019-07-03] MEDS ORDERED: ONDANSETRON 4 MG/2 ML INJ IV PRN (10:30)
[2019-07-03] MEDS ORDERED: OXYTOCIN 20 UNIT/1000ML DRIP 20 UNITS/1,000 ML BAG IV SCH (10:30)
[2019-07-03] MEDS: PRENATAL VIT27-FE FUMARATE-FOLIC ACID VIT TAB PO SCH (10:37)
[2019-07-03] MEDS: FERROUS SULFATE 325 MG TAB PO SCH ×2 (10:37→21:58)
[2019-07-03] MEDS: oxyCODONE /ACETAMINOPHEN 5-325MG TAB PO PRN ×2 (10:37→16:25)
[2019-07-03] MEDS: DOCUSATE SODIUM 100 MG CAP PO SCH ×2 (10:37→21:58)
[2019-07-03] MEDS: IBUPROFEN 600 MG TAB PO SCH ×2 (13:02→19:09)
[2019-07-03] MEDS ORDERED: OXYTOCIN 20 UNIT/1000ML DRIP 20,000 MILLIUNITS/1,000 ML BAG IV ONE (17:28)
[2019-07-03 20:12] LABS: Hematocrit 31.7 % (30.3-42.9); Hemoglobin 10.8 gm/dl (10.1-14.3)
[2019-07-03] MEDS ORDERED: MAGNESIUM HYDROXIDE (MOM) ORAL LIQD UDC PO PRN (22:00)
[2019-07-04] MEDS: IBUPROFEN 600 MG TAB PO SCH ×3 (01:07→19:09)
[2019-07-04] MEDS ORDERED: TETANUS,DIPH,PERTUSS(ACELL) VACCINE 0.5 ML SYRINGE IM ONE (06:00)
[2019-07-04] MEDS: oxyCODONE /ACETAMINOPHEN 5-325MG TAB PO PRN ×3 (07:50→23:40)
[2019-07-04] MEDS: FERROUS SULFATE 325 MG TAB PO SCH (09:11)
[2019-07-04] MEDS: DOCUSATE SODIUM 100 MG CAP PO SCH (09:12)
[2019-07-04] MEDS: PRENATAL VIT27-FE FUMARATE-FOLIC ACID VIT TAB PO SCH (09:12)
--- NOTE | 2019-07-04 09:27 | Progress Note ---
Assessment and Plan - Patient Problems (1) 39 weeks gestation of Onset Date: 07/02/19 Current Visit: Yes Status: Resolved (2) (normal spontaneous vaginal delivery) Onset Date: 07/04/19 Current Visit: No Status: Resolved Plan to address problem: A: S/P - PPD #1 Doing well Asymptomatic anemia - stable Elevated BP x 1 P: Continue RPPC Anticipate discharge tomorrow. Subjective - Subjective Date of service: 07/04/19 Principal diagnosis: s/p - PPD #1 Interval history: Pt is feeling well except for loss of appetite. Bleeding improved. Denies headaches or blurred vision. Patient reports: appetite normal, voiding normally, pain well controlled, flatus, appetite poor, ambulating normally, no dizzy ambulation, no nauseated : doing well, nursing well, bottle feeding Objective - Vital Signs Latest vital signs: Vital Signs Temp Pulse Resp BP BP Pulse Ox 07/04/19 07:33 98.2 F 65 16 145/94 100 07/03/19 23:30 98.6 F 62 18 106/73 07/03/19 19:30 98.6 F 69 18 116/59 07/03/19 15:57 97.8 F 18 111/79 07/03/19 12:54 98.0 F 77 18 112/73 100 07/03/19 09:40 97.6 F 18 L 112/76 Intake and Output 07/03/19 07/04/19 07/04/19 22:59 06:59 14:59 Intake Total 300 300 Balance 300 300 Intake: Intake, Free Water 300 300 Other: # Voids Void 2 1 Laboratory Tests 07/01/19 07/02/19 07/02/19 23:00 02:00 08:40 WBC 5.6 RBC 3.61 L Hgb 10.8 Hct 32.6 MCV 90 MCH 30 MCHC 33 RDW 14.9 Plt Count 114 L Urine Color Yellow Urine Turbidity Slightly-cloudy Urine pH 6.0 Ur Specific [place] 1.027 Urine Protein 30 mg/dl Urine Glucose (UA) Neg Urine Ketones 20 Urine Blood Neg Urine Nitrite Neg Urine Bilirubin Neg Urine Urobilinogen < 2.0 Ur Leukocyte Esterase Lg Urine WBC (Auto) 4.0 Urine RBC (Auto) 3.0 U Epithel Cells (Auto) 9.0 Urine Bacteria (Auto) 1+ Urine Mucus 3+ Blood Type O POSITIVE Antibody Screen Negative 07/03/19 19:49 WBC RBC Hgb 10.8 Hct 31.7 MCV MCH MCHC RDW Plt Count Urine Color Urine Turbidity Urine pH Ur Specific [place] Urine Protein Urine Glucose (UA) Urine Ketones Urine Blood Urine Nitrite Urine Bilirubin Urine Urobilinogen Ur Leukocyte Esterase Urine WBC (Auto) Urine RBC (Auto) U Epithel Cells (Auto) Urine Bacteria (Auto) Urine Mucus Blood Type Antibody Screen - Exam Breasts: Present: deferred Abdomen: Present: normal appearance, soft Uterus: Present: normal, firm, fundal height below umbilicus Extremities: Present: normal - Labs Labs: Laboratory Tests 07/01/19 07/02/19 07/02/19 23:00 02:00 08:40 WBC 5.6 RBC 3.61 L Hgb 10.8 Hct 32.6 MCV 90 MCH 30 MCHC 33 RDW 14.9 Plt Count 114 L Urine Color Yellow Urine Turbidity Slightly-cloudy Urine pH 6.0 Ur Specific [place] 1.027 Urine Protein 30 mg/dl Urine Glucose (UA) Neg Urine Ketones 20 Urine Blood Neg Urine Nitrite Neg Urine Bilirubin Neg Urine Urobilinogen < 2.0 Ur Leukocyte Esterase Lg Urine WBC (Auto) 4.0 Urine RBC (Auto) 3.0 U Epithel Cells (Auto) 9.0 Urine Bacteria (Auto) 1+ Urine Mucus 3+ Blood Type O POSITIVE Antibody Screen Negative 07/03/19 19:49 WBC RBC Hgb 10.8 Hct 31.7 MCV MCH MCHC RDW Plt Count Urine Color Urine Turbidity Urine pH Ur Specific [place] Urine Protein Urine Glucose (UA) Urine Ketones Urine Blood Urine Nitrite Urine Bilirubin Urine Urobilinogen Ur Leukocyte Esterase Urine WBC (Auto) Urine RBC (Auto) U Epithel Cells (Auto) Urine Bacteria (Auto) Urine Mucus Blood Type Antibody Screen
[2019-07-04] MEDS ORDERED: MEASLES, MUMPS & RUBELLA 12,500 UNIT/0.5 ML VACCINE SUB-Q ONE (11:00)
[2019-07-05] MEDS: oxyCODONE /ACETAMINOPHEN 5-325MG TAB PO PRN ×2 (08:12→14:05)
[2019-07-05] MEDS: FERROUS SULFATE 325 MG TAB PO SCH (08:13)
[2019-07-05] MEDS: PRENATAL VIT27-FE FUMARATE-FOLIC ACID VIT TAB PO SCH (08:13)
[2019-07-05] MEDS: DOCUSATE SODIUM 100 MG CAP PO SCH (08:13)
--- NOTE | 2019-07-05 11:27 | Discharge Summary ---
Providers - Providers Date of Admission: 07/02/19 06:16 Date of discharge: 07/05/19 Attending physician: SONJA GREEN Primary care physician: SONJA GREEN Hospitalization Reason for admission: active labor, IUP at term Delivery: Episiotomy: none Laceration: none Incision: normal Other procedures: none complications: none Discharge diagnosis: IUP at term delivered [place] baby: female Hospital course: Unremarkable except for single elevated BP 155/92, and pt asymptomatic - started on Labetolol 100mg BID. She will follow up in the office in 1 week for BP check. Condition at discharge: Good Disposition: DC-01 TO HOME OR SELFCARE - Discharge Diagnoses (1) 39 weeks gestation of Status: Resolved (2) (normal spontaneous vaginal delivery) Status: Resolved Plan - Discharge Medications Prescriptions: Ferrous Sulfate [Feosol 325 MG tab] 325 mg PO BID #60 tablet labetaloL [Labetalol 100mg TAB] 100 mg PO BID #60 tablet Ibuprofen [Motrin 600 MG tab] 600 mg PO Q6H #30 tablet Vit-Fe Fumar-FA [ Vitamin] 1 each PO QDAY #30 tablet - Provider Discharge Summary Activity: routine, no sex for 6 weeks, no heavy lifting 4 weeks, no strenuous exercise Diet: routine Instructions: routine Additional instructions: [] Smoking cessation referral if applicable(refer to patient education folder for contact #) [] Refer to [facility] Booklet Call your doctor immediately for: * Fever > 100.5 * Heavy vaginal bleeding ( >1 pad per hour) * Severe persistent headache * Shortness of breath * Reddened, hot, painful area to leg or breast * Drainage or odor from incision. * Keep incision clean and dry at all times and follow doctor's instructions regarding bathing/showering Follow up in the office in 1 week for BP check - Follow up plan Follow up: SONJA GREEN MD [Primary Care Provider] - 7 Days
[2019-07-05 13:12] VITALS: BP 140/81
== END 2019-07-05 14:45 | disposition home or self-care (01) | DRG 775 ==
LOC: TRG 22:17 → OBSVTOIN 07-02 06:16 → LD 07-02 06:16 → OB 07-03 09:45
PROVIDERS: ADMIT Obstetrics & Gynecology; ATTEND Obstetrics & Gynecology
PROC: 10E0XZZ Delivery of Products of Conception, External Approach (ICD-10-PCS; principal; 2019-07-03)
PROC: 10907ZC Drainage of Amniotic Fluid, Therapeutic from Products of Conception, Via Natural or Artificial Opening (ICD-10-PCS; 2019-07-03)
PROC: 3E0R3BZ Introduction of Anesthetic Agent into Spinal Canal, Percutaneous Approach (ICD-10-PCS; 2019-07-03)
PROC: 00HU33Z Insertion of Infusion Device into Spinal Canal, Percutaneous Approach (ICD-10-PCS; 2019-07-03)
DX: O99.824 Streptococcus B carrier state complicating childbirth (principal); O90.81 Anemia of the puerperium; D64.9 Anemia, unspecified; Z3A.39 39 weeks gestation of pregnancy; Z37.0 Single live birth
CPT/HCPCS: 36415; 59025; 81001; 85014; 85018; 85027; 86850; 86900; 86901; 87086; 96360; 96361; 96374; G0378; J0290; J0595; J2405; J2590; J3490; J7120

== ENCOUNTER 2020-09-22 11:42 | Emergency (ER) | payer SELFPAY ==
[2020-09-22 14:01] LABS: Bilirubin,Urine NEG (Negative); Blood,Urine SM (Negative); Color,Urine Yellow (Yellow); HCG Qualitative,Urine Negative (Negative); Mucus,Urine 3+ /HPF
[2020-09-22 15:02] LABS: Basophils % (Auto) 0.4 % (0.0-1.8); Eosinophils % (Auto) 0.5 % (0.0-4.3); Hematocrit 37.6 % (30.3-42.9); Hemoglobin 12.8 gm/dl (10.1-14.3); Lymphocytes # (Auto) 1.3 K/mm3 (1.2-5.4); Lymphocytes % (Auto) 15.9 % (13.4-35.0); Mean Corpuscular HGB Conc 34 % (30-34); Mean Corpuscular Volume 94 fl (79-97); Monocytes # (Auto) 0.4 K/mm3 (0.0-0.8); Monocytes % (Auto) 4.9 % (0.0-7.3); Platelet Count 173 K/mm3 (140-440)
[2020-09-22 15:25] LABS: Alanine Aminotransferase 8 units/L (7-56); Albumin 4.3 g/dL (3.9-5); BUN/Creatinine Ratio 10; Blood Urea Nitrogen 9 mg/dL (7-17); Calcium 9.1 mg/dL (8.4-10.2); Hemolysis Index 11
[2020-09-22 15:57] VITALS: BP 126/68
--- NOTE | 2020-09-22 16:30 | Emergency Department Report ---
ED Female HPI - General Chief complaint: Abdominal Pain Stated complaint: ABD PAIN Time Seen by Provider: 09/22/20 13:41 Source: patient Mode of arrival: Ambulatory Limitations: No Limitations - History of Present Illness Initial comments: 20-year-old -[place] female presents to the emergency room complaining abdominal pain for 3 days. Patient reports her last menstrual period was 09/14/2020 and only last for 1 day. Patient is 2. Of 2. Patient reports her pain is periumbilicus. She states she has never had pain like this before. She admits to nausea no vomiting chills but no fever. History of anemia and HSV 1. Denies any vaginal discharge vaginal bleeding. MD Complaint: pelvic pain Onset/Timin -: days(s) Location: suprapubic Radiation: periumbillical Severity: moderate Severity scale (0 -10): 7 Quality: cramping Consistency: intermittent Improves with: none Worsens with: none Are you Now?: No Last Menstrual Period: 10/12/20 EDC: 07/19/21 Associated Symptoms: abdominal pain, nausea/vomiting. denies: fever/chills, headaches, dysuria, hematuria, rash - Related Data Sexually active: Yes : 2 Para: 2 Home Medications Medication Instructions Recorded Confirmed Last Taken Valacyclovir HCl [Valtrex] 1,000 mg PO QDAY 02/19/18 07/03/19 07/02/19 10:00 1 Previous Rx's Medication Instructions Recorded Last Taken Type Vit-Fe Fumar-FA [ 1 each PO QDAY #30 tablet 11/27/17 07/02/19 10:00 Rx Vitamin] 1 Vit-Fe Fumar-FA [ 1 each PO QDAY #30 tablet 02/20/18 07/02/19 10:00 Rx Vitamin] 1 Ferrous Sulfate [Feosol 325 MG tab] 325 mg PO BID #60 tablet 07/05/19 Unknown Rx Ibuprofen [Motrin 600 MG tab] 600 mg PO Q6H #30 tablet 07/05/19 Unknown Rx Vit-Fe Fumar-FA [ 1 each PO QDAY #30 tablet 07/05/19 Unknown Rx Vitamin] labetaloL [Labetalol 100mg TAB] 100 mg PO BID #60 tablet 07/05/19 Unknown Rx Nitrofurantoin Tucker/M-Cryst 100 mg PO Q12HR 10 Days #20 capsule 09/22/20 Unknown Rx [Macrobid CAP] Allergies Allergy/AdvReac Type Severity Reaction Status Date / Time No Known Allergies Allergy Verified 11/24/17 12:17 ED Review of Systems ROS: Stated complaint: ABD PAIN Other details as noted in HPI Comment: All other systems reviewed and negative ED Past Medical Hx - Past Medical History Previous Medical History?: No Hx Hypertension: No Hx Congestive Heart Failure: No Hx Diabetes: No Hx Deep Vein Thrombosis: No Hx Renal Disease: No Hx Sickle Cell Disease: No Hx Seizures: No Hx Asthma: No Hx COPD: No Hx HIV: No - Surgical History Past Surgical History?: No - Social History Smoking Status: Never Smoker Substance Use Type: None - Medications Home Medications: Home Medications Medication Instructions Recorded Confirmed Last Taken Type Vit-Fe Fumar-FA [ 1 each PO QDAY #30 tablet 11/27/17 07/03/19 07/02/19 10:00 Rx Vitamin] 1 Valacyclovir HCl [Valtrex] 1,000 mg PO QDAY 02/19/18 07/03/19 07/02/19 10:00 His tory 1 Vit-Fe Fumar-FA [ 1 each PO QDAY #30 tablet 02/20/18 07/03/19 07/02/19 10:00 Rx Vitamin] 1 Ferrous Sulfate [Feosol 325 MG tab] 325 mg PO BID #60 tablet 07/05/19 Unknown Rx Ibuprofen [Motrin 600 MG tab] 600 mg PO Q6H #30 tablet 07/05/19 Unknown Rx Vit-Fe Fumar-FA [ 1 each PO QDAY #30 tablet 07/05/19 Unknown Rx Vitamin] labetaloL [Labetalol 100mg TAB] 100 mg PO BID #60 tablet 07/05/19 Unknown Rx Nitrofurantoin Tucker/M-Cryst 100 mg PO Q12HR 10 Days #20 capsule 09/22/20 Unknown Rx [Macrobid CAP] ED Physical Exam - General Limitations: No Limitations General appearance: alert, in no apparent distress - Head Head exam: Present: atraumatic, normocephalic - Eye Eye exam: Present: normal appearance - ENT ENT exam: Present: normal exam - Neck Neck exam: Present: normal inspection, full ROM - Respiratory Respiratory exam: Present: normal lung sounds bilaterally. Absent: chest wall tenderness, accessory muscle use - Cardiovascular Cardiovascular Exam: Present: regular rate - GI/Abdominal GI/Abdominal exam: Present: soft, tenderness, normal bowel sounds. Absent: distended - Back Exam Back exam: Present: normal inspection, full ROM - Neurological Exam Neurological exam: Present: alert, oriented X3, normal gait - Psychiatric Psychiatric exam: Present: normal affect, normal mood - Skin Skin exam: Present: warm, dry, intact, normal color. Absent: rash ED Course Vital Signs 09/22/20 09/22/20 12:05 15:56 Temperature 98.8 F Pulse Rate 68 65 Respiratory 18 16 Rate Blood Pressure 128/86 126/68 [Right] O2 Sat by Pulse 100 100 Oximetry ED Medical Decision Making - Lab Data Result diagrams: 09/22/20 14:52 09/22/20 14:52 - Medical Decision Making 20-year-old -[place] female presents to the emergency room complaining abdominal pain for 3 days. Patient reports her last menstrual period was 09/14/2020 and only last for 1 day. Patient is 2. Of 2. Patient reports her pain is periumbilicus. She states she has never had pain like this before. She admits to nausea no vomiting chills but no fever. History of anemia and HSV 1. Denies any vaginal discharge vaginal bleeding. Urinalysis is positive for urinary tract infection. Negative test. Patient be treated with Macrobid 100 mg p.o. every 12 for 10 days dispense 20. Ibuprofen or Tylenol for pain management. Follow-up with [facility]. Critical care attestation.: If time is entered above; I have spent that time in minutes in the direct care of this critically ill patient, excluding procedure time. ED Disposition Clinical Impression: UTI (urinary tract infection) Disposition: -01 TO HOME OR SELFCARE Is pt being admited?: No Does the pt Need Aspirin: No Condition: Stable Instructions: Abdominal Pain (ED), Urinary Tract Infection, Adult, [id number] Additional Instructions: Complete antibiotics as prescribed. Pain medicine such as Tylenol ibuprofen you can take. Increase your water intake. Void after intercourse. Follow-up with [facility] or primary care provider. Prescriptions: Nitrofurantoin Tucker/M-Cryst [Macrobid CAP] 100 mg PO Q12HR 10 Days #20 capsule Referrals: KORY CHOWDARY MD [Primary Care Provider] - 3-5 Days Forms: Work/School Release Form(ED)
== END 2020-09-22 16:37 | disposition home or self-care (01) ==
LOC: ED 11:42
DX: N39.0 Urinary tract infection, site not specified (principal); Z79.899 Other long term (current) drug therapy
CPT/HCPCS: 36415; 80053; 81001; 81025; 83690; 84702; 85025; 87086